=== PATIENT | female | born 1985 | race Two or more races ===

== ENCOUNTER 2023-04-17 15:00 | Outpatient (CLI) | payer OTHER | END 2023-04-17 15:21 | disposition home or self-care (01) | LOC: MRI 15:00 | DX: M54.59 Other low back pain (principal) | CPT/HCPCS: 72148 ==

== ENCOUNTER 2023-04-25 08:07 | Outpatient (CLI) | payer OTHER | END 2023-04-25 08:12 | disposition home or self-care (01) | LOC: SONOGRAMA 08:07 | DX: R74.01 Elevation of levels of liver transaminase levels (principal) ==

== ENCOUNTER 2023-07-21 13:20 | Outpatient (CLI) | payer OTHER | END 2023-07-21 13:33 | disposition home or self-care (01) | LOC: MAMO-SONO 13:20 | PROVIDERS: ATTEND Obstetrics & Gynecology | DX: Z80.3 Family history of malignant neoplasm of breast (principal); N64.4 Mastodynia; Z12.31 Encounter for screening mammogram for malignant neoplasm of breast ==

== ENCOUNTER → 2023-08-02 07:26 | Outpatient (CLI) | payer OTHER ==
[2023-08-02 08:52] LABS: CREATININE SERUM 0.77 mg/dL (0.55-1.02)
== END | disposition home or self-care (01) ==
LOC: LAB 07:26
PROVIDERS: ATTEND Obstetrics & Gynecology
DX: Z34.81 Encounter for supervision of other normal pregnancy, first trimester (principal); R97.1 Elevated cancer antigen 125 [CA 125]; R97.8 Other abnormal tumor markers; R77.2 Abnormality of alphafetoprotein; R94.4 Abnormal results of kidney function studies; B55.9 Leishmaniasis, unspecified

== ENCOUNTER → 2023-08-02 | Outpatient (CLI) | payer OTHER | END | disposition home or self-care (01) | LOC: TOM 08:07 | PROVIDERS: ATTEND Obstetrics & Gynecology | DX: R19.07 Generalized intra-abdominal and pelvic swelling, mass and lump (principal) ==

== ENCOUNTER → 2024-05-20 07:58 | Outpatient (CLI) | payer OTHER | END | disposition home or self-care (01) | LOC: LAB 07:58 | PROVIDERS: ATTEND Student in an Organized Health Care Education/Training Program | DX: R10.13 Epigastric pain (principal) ==

== ENCOUNTER 2025-06-11 07:51 | Outpatient (CLI) | payer OTHER | END 2025-06-11 08:15 | disposition home or self-care (01) | LOC: MRI 07:51 | DX: Z83.79 Family history of other diseases of the digestive system (principal) | CPT/HCPCS: 70551 ==